=== PATIENT | female | born 1945 ===

== ENCOUNTER 2024-07-27 18:18 | Outpatient (NON) | payer MEDICARE, SELFPAY ==
--- OUTSIDE RECORDS SUMMARY | 2024-07-27 18:31 | XMS_ITS | Clinical Summary ---
Author Organization [facility] Address [address] [place] [id number] Care Team Providers Care Automotive Instructor Name Role Phone Unavailable Primary Care Provider Unavailabl e Social History Tobacco Use Types Packs/Day Years Used Date Smoking Tobacco: Never Assessed Comments Unknown Sex and Gender Information Value Date Recorded Sex Assigned at Not on file Legal Sex Female 7:15 PM CDT Gender Identity Not on file Sexual Orientation Not on file Plan of Treatment Health Maintenance Due Date Last Done Comments Hepatitis C 1963 DTaP, Tdap and Td Vaccines ( 1 - Tdap) 1965 Zoster Vaccines (1 of 2) 1996 Annual Medicare Wellness Visit 11/02/2011 Dexa Scan (General) 11/02/2011 Pneumococcal Vaccine: 65+ Ye ars (1 of 1 - PCV) 11/02/2011 RSV Immunization or 60+ Years (1 - 1-dose 75+ series) 2021 COVID-19 Vaccine ( - 2023-2 5 season) 2024 Influenza Adult (#1) 2024 Meningococcal B Vaccine Aged Out No l onger eligible based on patient's age to complete this topic Meningococcal Vaccine Aged Out No kayla stanley eligible based on patient's age to complete this topic RSV Immunizations Under 20 Months Aged Out No longer eligible based on patient's age to complete this topic Insurance MEDICARE
--- OUTSIDE RECORDS SUMMARY | 2024-07-27 18:31 | XMS_ITS | Clinical Summary ---
Author Organization Unknown Care Team Providers Care Telesales Manager Name Role Phone JENNIFER MANNING, IDALIA Unavailable Unavailable LEE REGISTERED NURSE CASTING CLEANER, NATHANAEL Santiago vailakellie Unavailable IDA WOOSD COUNSELOR, YANG Unavailable Unavailable Payers Payer Name Policy Type Policy Number Effective Date Expira tion Date MEDICARE [place] - EPISODIC [id number] Problems Condition Name Condition Details Condition Category Status Onset Date Resolution Date Last Treatment Date Treating Clinician Comments ENCEPHALOPAT HY, UNSPECIFIED Active 05-19 00:00: 00 OTHER PERSISTENT ATRIAL FIBRILLATION Active 05-19 00:00: 00 PARKINSON'S DIS W/O DYSKINESIA, W/O MENTION OF FLUCTUATIONS Active 05-19 00:00: 00 HYPERTENSIVE HEART DISEASE WITH HEART FAILURE Active 05-19 00:00: 00 ACUTE ON CHRONIC DIASTOLIC (CONGESTIVE) HEART FAILURE Active 05-19 00:00: 00 HYPERLIPIDEM IA, UNSPECIFIED Active 05-19 00:00: 00 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 Active 05-19 00:00: 00 ATHSCL HEART DISEASE OF [place] CORONARY ARTERY W/O ANG PCTRS Active 05-19 00:00: 00 OTHER SPECIFIED INTERSTITIAL PULMONARY DISEASES Active 05-19 00:00: 00 MODERATE PERSISTENT ASTHMA, UNCOMPLICATE D Active 05-19 00:00: 00 MAJOR DEPRESSIVE DISORDER, SINGLE EPISODE, UNSPECIFIED Active 05-19 00:00: 00 IRRITABLE BOWEL SYNDROME WITH CONSTIPATION Active - 00:00: 00 RESTLESS LEGS SYNDROME Active - 00:00: 00 GASTRO-ESOPH AGEAL REFLUX DISEASE WITHOUT ESOPHAGITIS Active 05-19 00:00: 00 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 Active 05-19 00:00: 00 AGE-RELATED OSTEOPOROSIS W/O CURRENT PATHOLOGICAL FRACTURE Active 05-19 00:00: 00 Oth intvrt disc degen, lum rgn w/o lum bck or lw extrm pain Active 05-19 00:00: 00 OVERACTIVE BLADDER Active 05-19 00:00: 00 RETENTION OF URINE, UNSPECIFIED Active 05-19 00:00: 00 DYSPHAGIA, UNSPECIFIED Active 05-19 00:00: 00 OLD MYOCARDIAL INFARCTION Active 05-19 00:00: 00 Obesity, class 2 Active 05-19 00:00: 00 BODY MASS INDEX [BMI] 36.0-36.9, ADULT Active 05-19 00:00: 00 DEPENDENCE ON WHEELCHAIR Active 05-19 00:00: 00 PERSONAL HISTORY OF URINARY (TRACT) INFECTIONS Active 2023-05 00:00: 00 PERSONAL HISTORY OF NICOTINE DEPENDENCE Active 05-19 00:00: 00 PRESENCE OF ARTIFICIAL KNEE JOINT, BILATERAL Active 05-19 00:00: 00 PRESENCE OF RIGHT ARTIFICIAL SHOULDER JOINT Active 05-19 00:00: 00 OTHER GROUP HOME (CURRENT) DRUG THERAPY Active 05-19 00:00: 00 HORMONE REPLACEMENT THERAPY Active 05-19 00:00: 00 GROUP HOME (CURRENT) USE OF ASPIRIN Active 05-19 00:00: 00 GROUP HOME (CURRENT) USE OF ANTICOAGULAN TS Active 05-19 00:00: 00 HISTORY OF FALLING Active 05-19 00:00: 00 PAROXYSMAL ATRIAL FIBRILLATION Active 05-19 00:00: 00 Allergies, Adverse Reactions, Alerts Allergy Name Allergy Type Status Severity Reaction(s) Onset Date Inactive Date Treating Clinician Comments MORPHINE Propensity to adverse reactions Active 2024-03 20:21:0 7 TRAMADOL Propensity to adverse reactions Active 2024-03 20:21:2 1 ADHESIVE Propensity to adverse reactions Active 2024-03 20:20:5 7 Medications Ordered Medication Name Filled Medication Name Start Date Stop Date Current Medication? Ordering Clinician Indication Dosage Frequency Signature (SIG) Comments Components acetaminoph en 325 mg capsule 2023-05 00:00: 00 Yes [id number] PAIN 2 capsule EVERY 6 HOURS 2 capsule EVERY 6 HOURS (route: oral) Med Classific ation: Analgesic , Anti-infl ammatory or Antipyret ic albuterol sulfate 0.63 mg/3 mL solution for nebulizatio n 2023-05 00:00: 00 Yes [id number] WHEEZING 3 mL EVERY 6 HOURS 3 mL EVERY 6 HOURS (route: inhalation ) Med Classific ation: Respirato ry Therapy Agents albuterol sulfate HFA 90 mcg/actuati on aerosol inhaler 2023-05 00:00: 00 Yes [id number] WHEEZING 2 puff EVERY 4 HOURS 2 puff EVERY 4 HOURS (route: inhalation ) Med Classific ation: Respirato ry Therapy Agents amlodipine 10 mg tablet 2023-05 00:00: 00 06-02 23:59 :00 No [id number] HTN 1 tablet DAILY 1 tablet DAILY (route: oral) Med Classific ation: Cardiovas cular Therapy Agents aspirin 81 mg tablet,singh yed release 2023-05 00:00: 00 Yes [id number] BLOOD CLOT PREVENTION 1 tablet DAILY 1 tablet DAILY (route: oral) Med Classific ation: Hematolog ical Agents Bactrim DS 800 mg-160 mg tablet 2023-05 00:00: 00 04-19 23:59 :00 No [id number] UTI 1 tablet 2 TIMES DAILY 1 tablet 2 TIMES DAILY (route: oral) Med Classific ation: Anti-Infe ctive Agents Colace 100 mg capsule 2023-05 00:00: 00 Yes [id number] CONSTIPATIO N 1 capsule 2 TIMES DAILY 1 capsule 2 TIMES DAILY (route: oral) Med Classific ation: Gastroint estinal Therapy Agents hydralazine 25 mg tablet 2023-05 00:00: 00 Yes [id number] HTN 1 tablet EVERY 8 HOURS 1 tablet EVERY 8 HOURS (route: oral) Med Classific ation: Cardiovas cular Therapy Agents hydrocodone 7.5 mg-acetamin ophen 300 mg tablet 2023-05 00:00: 00 Yes [id number] PAIN 1 tablet EVERY 8 HOURS 1 tablet EVERY 8 HOURS (route: oral) Med Classific ation: Analgesic , Anti-infl ammatory or Antipyret ic hydroxyzine HCl 10 mg tablet 2023-05 00:00: 00 04-19 23:59 :00 No [id number] ITCHING 1 tablet EVERY 12 HOURS 1 tablet EVERY 12 HOURS (route: oral) Med Classific ation: Central Nervous System Agents isosorbide mononitrate ER 30 mg tablet,exte nded release 24 hr 2023-05 00:00: 00 06-02 23:59 :00 No [id number] CHEST PAIN 1 tablet DAILY 1 tablet DAILY (route: oral) Med Classific ation: Cardiovas cular Therapy Agents meloxicam 15 mg tablet 2023-05 00:00: 00 04-19 23:59 :00 No [id number] PAIN 1 tablet DAILY 1 tablet DAILY (route: oral) Med Classific ation: Analgesic , Anti-infl ammatory or Antipyret ic methimazole 10 mg tablet 2023-05 00:00: 00 Yes [id number] HYPERTHYROI DISM 1.5 tablet DAILY 1.5 tablet DAILY (route: oral) Med Classific ation: Endocrine Mucinex Cold,Flu and Sore Throat 10 mg-20 mg-650 mg/20 mL oral liquid 2023-05 00:00: 00 Yes [id number] COUGH 10 mL EVERY 4 HOURS 10 mL EVERY 4 HOURS (route: oral) Med Classific ation: Respirato ry Therapy Agents omeprazole 20 mg capsule,del ayed release 2023-05 00:00: 00 Yes [id number] INDIGESTION 1 capsule DAILY 1 capsule DAILY (route: oral) Med Classific ation: Gastroint estinal Therapy Agents ondansetron 4 mg disintegrat ing tablet 2023-05 00:00: 00 Yes [id number] NAUSEA 1 tablet EVERY 8 HOURS 1 tablet EVERY 8 HOURS (route: oral) Med Classific ation: Gastroint estinal Therapy Agents ropinirole 1 mg tablet 2023-05 00:00: 00 Yes [id number] PARKINSONS 1.5 tablet EVERY 8 HOURS 1.5 tablet EVERY 8 HOURS (route: oral) Med Classific ation: Central Nervous System Agents rosuvastati n 20 mg tablet 2023-05 00:00: 00 Yes [id number] HIGH CHOLESTEROL 1 tablet DAILY 1 tablet DAILY (route: oral) Med Classific ation: Cardiovas cular Therapy Agents Sinemet 25 mg-100 mg tablet 2023-05 00:00: 00 Yes [id number] PARKINSONS 2 tablet 4 TIMES DAILY 2 tablet 4 TIMES DAILY (route: oral) Med Classific ation: Central Nervous System Agents Vasotec 20 mg tablet 2023-05 00:00: 00 Yes [id number] HTN 1 tablet DAILY 1 tablet DAILY (route: oral) Med Classific ation: Cardiovas cular Therapy Agents Wellbutrin XL 300 mg 24 hr tablet, extended release 2023-05 00:00: 00 04-19 23:59 :00 No [id number] DEPRESSION 1 tablet DAILY 1 tablet DAILY (route: oral) Med Classific ation: Central Nervous System Agents Zoloft 100 mg tablet 2023-05 00:00: 00 Yes [id number] DEPRESSION 1 tablet DAILY 1 tablet DAILY (route: oral) Med Classific ation: Central Nervous System Agents nitrofurant oin macrocrysta l 100 mg capsule 05-20 00:00: 00 05-28 23:59 :00 No [id number] DYSURIA 1 capsule TWICE DAILY 1 capsule TWICE DAILY (route: oral) Med Classific ation: Genitouri nary Therapy fluticasone 500 mcg-salmete rol 50 mcg/dose blistr powdr for inhalation 06-06 00:00: 00 Yes [id number] SOB 1 inhalat ion TWICE DAILY 1 inhalation TWICE DAILY (route: inhalation ) Med Classific ation: Respirato ry Therapy Agents furosemide 20 mg tablet 06-06 00:00: 00 Yes [id number] RETENTION 1 tablet ONCE DAILY 1 tablet ONCE DAILY (route: oral) Med Classific ation: Cardiovas cular Therapy Agents Gemtesa 75 mg tablet 06-06 00:00: 00 Yes [id number] OVER REACTIVE BLADDER 1 tablet ONCE DAILY 1 tablet ONCE DAILY (route: oral) Med Classific ation: Genitouri nary Therapy metoprolol succinate ER 25 mg tablet,exte nded release 24 hr 06-06 00:00: 00 Yes [id number] HYPERTENSIO N 1 tablet ONCE DAILY 1 tablet ONCE DAILY (route: oral) Med Classific ation: Cardiovas cular Therapy Agents nystatin 1 billion unit powder 06-06 00:00: 00 Yes [id number] RASH Per instruc tions TWICE DAILY Per instructio ns TWICE DAILY (route: miscellane ous) Med Classific ation: Anti-Infe ctive Agents Eliquis 5 mg tablet 06-04 00:00: 00 Yes [id number] A. FIB 1 tablet TWICE DAILY 1 tablet TWICE DAILY (route: oral) Med Classific ation: Hematolog ical Agents Immunizations Ordered Immunization Name Filled Immunization Name Date Status Comments Refusal Reason INFLUENZA, TIV (INACTIVATED) 2024-02-23 00:00:00 PNEUMOCOCCAL (PPV), PPV 2024-02-03 00:00:00 Vital Signs Vital Name Observation Time Observation Value Commen ts Temperature 2024-07-26 11:39:00.000 97.7 [degF] Temperature 2024-07-19 10:25:00.000 97.9 [degF] Temperature 2024-07-12 12:59:00.000 97.9 [degF] Temperature 2024-07-05 11:59:00.000 99.3 [degF] Temperature 2024-07-02 15:15:00.000 97.8 [degF] Temperature 2024-06-22 11:56:00.000 97.9 [degF] Temperature 2024-06-21 11:03:00.000 97.2 [degF] Temperature 2024-06-16 10:18:00.000 100.6 [degF] Temperature 2024-06-14 11:02:00.000 97.7 [degF] Temperature 2024-06-07 12:30:00.000 97.3 [degF] Temperature 2024-06-07 11:26:00.000 97.3 [degF] BMI (%) 2024-06-21 11:03:00.000 36 kg/m2 Height 2024-06-21 11:03:00.000 60 [in_us] Pulse 2024-07-26 11:39:00.000 61 /min Pulse 2024-07-19 10:25:00.000 61 /min Pulse 2024-07-12 12:59:00.000 60 /min Pulse 2024-07-05 11:59:00.000 60 /min Pulse 2024-07-02 15:15:00.000 63 /min Pulse 2024-06-22 11:57:00.000 57 /min Pulse 2024-06-21 11:03:00.000 60 /min Pulse 2024-06-16 10:18:00.000 76 /min Pulse 2024-06-14 11:02:00.000 65 /min Pulse 2024-06-07 12:10:00.000 71 /min Pulse 2024-06-07 11:26:00.000 71 /min O2 Saturation (%) 2024-07-26 11:39:00.000 97 % O2 Saturation (%) 2024-07-19 10:25:00.000 96 % O2 Saturation (%) 2024-07-12 12:59:00.000 99 % O2 Saturation (%) 2024-07-05 11:59:00.000 97 % O2 Saturation (%) 2024-07-02 15:15:00.000 96 % O2 Saturation (%) 2024-06-22 11:56:00.000 96 % O2 Saturation (%) 2024-06-21 11:03:00.000 97 % O2 Saturation (%) 2024-06-16 10:18:00.000 96 % O2 Saturation (%) 2024-06-14 11:02:00.000 95 % O2 Saturation (%) 2024-06-07 12:10:00.000 99 % O2 Saturation (%) 2024-06-07 11:26:00.000 99 % Respirations 2024-07-26 11:39:00.000 18 /min Respirations 2024-07-19 10:25:00.000 17 /min Respirations 2024-07-12 12:59:00.000 16 /min Respirations 2024-07-05 11:59:00.000 17 /min Respirations 2024-07-02 15:15:00.000 18 /min Respirations 2024-06-22 11:56:00.000 16 /min Respirations 2024-06-21 11:03:00.000 18 /min Respirations 2024-06-16 10:18:00.000 16 /min Respirations 2024-06-14 11:02:00.000 18 /min Respirations 2024-06-07 12:10:00.000 17 /min Respirations 2024-06-07 11:26:00.000 17 /min Weight (lbs) 2024-06-21 11:03:00.000 189 [lb_av] Systolic Blood Pressure 2024-07-26 11:39:00.000 122 mm [Hg] Systolic Blood Pressure 2024-07-19 10:25:00.000 118 mm [Hg] Systolic Blood Pressure 2024-07-12 12:59:00.000 107 mm [Hg] Systolic Blood Pressure 2024-07-05 11:59:00.000 126 mm [Hg] Systolic Blood Pressure 2024-07-02 15:15:00.000 132 mm [Hg] Systolic Blood Pressure 2024-06-22 11:56:00.000 136 mm [Hg] Systolic Blood Pressure 2024-06-21 11:03:00.000 118 mm [Hg] Systolic Blood Pressure 2024-06-16 10:18:00.000 223 mm [Hg] Systolic Blood Pressure 2024-06-14 11:02:00.000 125 mm [Hg] Systolic Blood Pressure 2024-06-07 12:10:00.000 122 mm [Hg] Systolic Blood Pressure 2024-06-07 11:26:00.000 122 mm [Hg] Diastolic Blood Pressure 2024-07-26 11:39:00.000 70 mm [Hg] Diastolic Blood Pressure 2024-07-19 10:25:00.000 60 mm [Hg] Diastolic Blood Pressure 2024-07-12 12:59:00.000 64 mm [Hg] Diastolic Blood Pressure 2024-07-05 11:59:00.000 62 mm [Hg] Diastolic Blood Pressure 2024-07-02 15:15:00.000 81 mm [Hg] Diastolic Blood Pressure 2024-06-22 11:56:00.000 80 mm [Hg] Diastolic Blood Pressure 2024-06-21 11:03:00.000 60 mm [Hg] Diastolic Blood Pressure 2024-06-16 10:18:00.000 119 m m[Hg] Diastolic Blood Pressure 2024-06-14 11:02:00.000 56 mm [Hg] Diastolic Blood Pressure 2024-06-07 12:10:00.000 58 mm [Hg] Diastolic Blood Pressure 2024-06-07 11:26:00.000 58 mm [Hg] Plan of Treatment Planned Activity Planned Date Details Comments Future Scheduled Test HOME HEALT H NURSE WILL INSTRUCT PATIENT/CAREGIVER ABOUT PARKINSONS DISEASE INCLUDING DEFINITION, RISK FACTORS, SIGNS/SYMPTOMS, POSSIBLE COMPLICATIONS, AND HOME MANAGEMENT. [code = HOME HEALTH NURSE WILL INSTRUCT PATIENT/CAREGIVER ABOUT PARKINSONS DISEASE INCLUDING DEFINITION, RISK FACTORS, SIGNS/SYMPTOMS, POSSIBLE COMPLICATIONS, AND HOME MANAGEMENT.] Future Scheduled Test HOME HEALT H NURSE WILL ASSESS FOR COMPLICATIONS RELATED TO ANTIPLATELET USE AND INSTRUCT PATIENT/CAREGIVER ABOUT PRECAUTIONS TO FOLLOW AND SIGNS/SYMPTOMS TO REPORT. [code = HOME HEALTH NURSE WILL ASSESS FOR COMPLICATIONS RELATED TO ANTIPLATELET USE AND INSTRUCT PATIENT/CAREGIVER ABOUT PRECAUTIONS TO FOLLOW AND SIGNS/SYMPTOMS TO REPORT.] Future Scheduled Test SKILLED NU RSE TO INSTRUCT PATIENT/CAREGIVER ON WHAT IS HYPERTENSION, HOW TO CHECK HIS/HER BLOOD PRESSURE, AND STRATEGIES TO USE TO CONTROL BLOOD PRESSURE SUCH MONITORING BP, SMOKING CESSATION, MONITORING WEIGHTS, ENGAGING IN PHYSICAL ACTIVITY AIMING FOR 150 MINUTES SPREAD THROUGHOUT THE WEEK. [code = SKILLED NURSE TO INSTRUCT PATIENT/CAREGIVER ON WHAT IS HYPERTENSION, HOW TO CHECK HIS/HER BLOOD PRESSURE, AND STRATEGIES TO USE TO CONTROL BLOOD PRESSURE SUCH MONITORING BP, SMOKING CESSATION, MONITORING WEIGHTS, ENGAGING IN PHYSICAL ACTIVITY AIMING FOR 150 MINUTES SPREAD THROUGHOUT THE WEEK.] Future Scheduled Test SKILLED NU RSE TO OBSERVE AND ASSESS PATIENT WITH GENERALIZED DEPRESSION AND TEACH DEPRESSIVE SYMPTOMS. [code = SKILLED NURSE TO OBSERVE AND ASSESS PATIENT WITH GENERALIZED DEPRESSION AND TEACH DEPRESSIVE SYMPTOMS.] Future Scheduled Test HOME HEALT H NURSE WILL TEACH THE PATIENT/CAREGIVER ABOUT WHAT IS AN ARRHYTHMIA, HOW TO CHECK OWN PULSE AND TRACK, SIGNS AND SYMPTOMS OF WHEN ARRYTHMIA OCCURS, AND WHAT WARNING SIGNS TO CALL THE AGENCY, PHYSICIAN OR 911. [code = HOME HEALTH NURSE WILL TEACH THE PATIENT/CAREGIVER ABOUT WHAT IS AN ARRHYTHMIA, HOW TO CHECK OWN PULSE AND TRACK, SIGNS AND SYMPTOMS OF WHEN ARRYTHMIA OCCURS, AND WHAT WARNING SIGNS TO CALL THE AGENCY, PHYSICIAN OR 911.] Future Scheduled Test [facility] PHYSICIAN, ASSOCIATED PHYSICIAN, NPP OR PA WITHIN THE SAME GROUP MAY APPROVE AND SIGN THE ORDER (ON ANY PAGE) ATTESTING THAT THE COMPREHENSIVE OUTCOME ASSESSMENTS, EVALUATIONS, AND HOME HEALTH CERTIFICATION PLANS SUPPORT HOMEBOUND STATUS. HOME HEALTH WEB-PORTAL DOCUMENTATION ACCESSED BY THE PHYSICIAN MUST BE INCORPORATED INTO THE MEDICAL RECORD TO CORROBORATE THE PHYSICIAN, NPP, OR PAS F2F ENCOUNTER TO SUPPORT ELIGIBILITY FOR HOME HEALTH SERVICES. [code = THE CERTIFYING PHYSICIAN, ASSOCIATED PHYSICIAN, NPP OR PA WITHIN THE SAME GROUP MAY APPROVE AND SIGN THE ORDER (ON ANY PAGE) ATTESTING THAT THE COMPREHENSIVE OUTCOME ASSESSMENTS, EVALUATIONS, AND HOME HEALTH CERTIFICATION PLANS SUPPORT HOMEBOUND STATUS. HOME HEALTH WEB-PORTAL DOCUMENTATION ACCESSED BY THE PHYSICIAN MUST BE INCORPORATED INTO THE MEDICAL RECORD TO CORROBORATE THE PHYSICIAN, NPP, OR PAS F2F ENCOUNTER TO SUPPORT ELIGIBILITY FOR HOME HEALTH SERVICES.] Future Scheduled Test EACH ORDER ED IN-HOME OR TELEHEALTH VISIT, THE SKILLED NURSE WILL CONDUCT A COMPREHENSIVE ASSESSMENT INCLUDING VITAL SIGNS, PAIN, SAFETY, MENTAL/COGNITIVE/PSYCHOSOCIAL STATUS, MED MANAGEMENT, NUTRITION, SKIN INTEGRITY, PRESSURE ULCER PREVENTION, AND PATIENT/CAREGIVER ABILITY TO SUPPORT ORDERED CARE. SKILLED NURSE WILL INSTRUCT ON DISEASE PROCESS, MED MGMT., FALL PREVENTION AND SAFETY, INFECTION CONTROL AND PREVENTION, WARNING SIGNS, ADDRESS RESULTS OUTSIDE OF ORDERED PARAMETERS LISTED ON CARE PLAN, AND COORDINATE DISCHARGE WITH THE TREATING PROVIDER. MAY ACCEPT ORDERS FROM THE FOLLOWING PROVIDER(S) WHO WILL BE CONSULTING ON THE CERTIFIED CARE PLAN: IDALIA RODRIGUEZ NP [code = EACH ORDERED IN-HOME OR TELEHEALTH VISIT, THE SKILLED NURSE WILL CONDUCT A COMPREHENSIVE ASSESSMENT INCLUDING VITAL SIGNS, PAIN, SAFETY, MENTAL/COGNITIVE/PSYCHOSOCIAL STATUS, MED MANAGEMENT, NUTRITION, SKIN INTEGRITY, PRESSURE ULCER PREVENTION, AND PATIENT/CAREGIVER ABILITY TO SUPPORT ORDERED CARE. SKILLED NURSE WILL INSTRUCT ON DISEASE PROCESS, MED MGMT., FALL PREVENTION AND SAFETY, INFECTION CONTROL AND PREVENTION, WARNING SIGNS, ADDRESS RESULTS OUTSIDE OF ORDERED PARAMETERS LISTED ON CARE PLAN, AND COORDINATE DISCHARGE WITH THE TREATING PROVIDER. MAY ACCEPT ORDERS FROM THE FOLLOWING PROVIDER(S) WHO WILL BE CONSULTING ON THE CERTIFIED CARE PLAN: IDALIA RODRIGUEZ NP] Future Scheduled Test OCCUPATION AL THERAPIST TO EVALUATE AND TREAT [code = OCCUPATIONAL THERAPIST TO EVALUATE AND TREAT] Goal Patient Goal - S OC- 04/07/24- HEAL WOUND AND GET STRONGER KVNG/RECERT- 06/02/24: TO STAY OUT OF HOSPITAL KVNG 06/21/24: TO REMAIN FREE FROM FALLS AND HOSPITALIZATIONS Goal 2024-06-02 Patient Goal - S OC- 04/07/24- HEAL WOUND AND GET STRONGER Goal 2024-06-21 Patient Goal - S OC- 04/07/24- HEAL WOUND AND GET STRONGER KVNG/RECERT- 06/02/24: TO STAY OUT OF HOSPITAL Goal Provider Goal - PATIENT/CAREGIVER WILL VERBALIZE UNDERSTANDING OF PARKINSON'S DISEASE INCLUDING DEFINITION, SIGNS/SYMPTOMS, POSSIBLE COMPLICATIONS, AND MANAGEMENT BY THE END OF HOME HEALTH SERVICES. Goal Provider Goal - PATIENT/CAREGIVER WILL VERBALIZE UNDERSTANDING OF ANTIPLATELET COMPLICATIONS TO REPORT AND PRECAUTIONS TO FOLLOW BY END OF HOME HEALTH SERVICES. Goal Provider Goal - PATIENT/CAREGIVER WILL INDEPENDENTLY DEMONSTRATE HOW TO CHECK HIS/HER OWN BP AND VERBALIZE WHAT STRATEGIES CAN ASSIST TO CONTROL BLOOD PRESSURE. Goal Provider Goal - PATIENT/CAREGIVER WILL VERBALIZE UNDERSTANDING OF THE CONTRIBUTING FACTORS AND SYMPTOMS OF DEPRESSION. Goal Provider Goal - BY THE END OF HOME HEALTH SERVICES, PATIENT/CAREGIVER WILL DEMONSTRATE HOW TO TAKE THEIR OWN PULSE AND VERBALIZE WHAT WARNING SIGNS TO CALL THE PHYSICIAN OR 911 BY THE END OF HOME HEALTH SERVICES. Goal Provider Goal - A PLAN OF CARE WILL BE ESTABLISHED THAT MEETS ALL PATIENT'S SNF NEEDS AND COUNTER SIGNED BY PHYSICIAN. Goal Provider Goal - PATIENT WILL BE FREE OF FALLS AND HOSPITALIZATIONS THROUGHOUT EPISODE OF CARE. PATIENT/CAREGIVER WILL UNDERSTAND AND ADHERE TO ORDERED DIET. PATIENT/CAREGIVER WILL INDEPENDENTLY MANAGE MEDICATIONS, UNDERSTAND ANY CHANGES, SIDE EFFECTS TO REPORT BY DISCHARGE. PATIENT WILL BE FREE OF INFECTION AND UNDERSTAND MEASURES OF PREVENTION. PATIENT/CAREGIVER WILL COLLABORATE WITH SKILLED NURSE TO DEVELOP POC AT SOC AND ON AN ONGOING BASIS UPDATES ARE NEEDED. UNDERSTAND PROGRESS MADE/DISCHARGE PLANNING. ADDITIONAL ORDERS WILL BE RECEIVED FROM ALTERNATE PHYSICIANS IN A TIMELY MANNER. Goal Provider Goal - Progress Notes Progress Notes <paragraph>[Visit Date: 2024 by NATHANAEL HOWARD REGISTERED NURSE CASTING CLEANER]:</paragraph><paragraph>PTNT BEING SEEN BY SN FOR ENCEPHALOPATHY. PTNT MENTAL STATUS IS BACK TO BASELINE. SN GREETED AT DOOR BY PTNT , OLESYA. ENTERED HOME TO FIND PTNT RESTING ON COUCH WITH LEGS ELEVATED. PTNT PRESENT DURING VISIT. NO FALLS OR MED CHANGES THIS WEEK. BIGGEST COMPLAINT IS STRONG SMELLING URINE AND FREQUENCY. SN NOTIFIED [place]ISS WITH IDALIA RODRIGUEZ NP. SN REQUESTS UA FOR THIS WEEK. NNO RECEIVED AT THIS TIME. PTNT ANOX4, ACTIVELY PARTICIPATING IN CARE WITH PLEASANT AFFECT. COMPREHENSIVE ASSESSMENT COMPLETED. VSS, HR REG, LUNGS CTA, BSX4, ABD SOFT NONTENDER, BM'S NORMAL, LBM 07/26/24, NO EDEMA BLE, +2 PEDAL PULSES. PAIN 5/10 LEFT SHOULDER. WITH MOVEMENT SHOULDER PAIN IS 8-10/10. PTNT DENIES, CHEST PAIN, FEVER, CHILLS, AND SOB. SKIN CHECK COMPLETED. PTNT DEMONSTRATES NO BREAKDOWN IN SKIN INTEGRITY. SN INSTRUCTED PTNT ON PAIN MGMT: RELAXATION, PAIN MED SCHEDULE, HEAT/COLD THERAPY, GUIDED IMAGERY, POSITIONING, EXERCISE TO PREVENT STIFFNESS, ETC. PTNT APT 07/26 DR. DAVALOS, 08/04 IDALIA RODRIGUEZ NP (PCP), 08/04 PAIN MGMT, 09/07 DR. CHACON (ORTHO), 11/25 THYROID US, 12/08 UDAY KATHLEEN (NEURO). PTNT STABLE AT DEPARTURE FROM HOME. PTNT/CG VERBALIZED UNDERSTANDING OF ALL EDUCATION PROVIDED. PTNT/CG DENY ADDITIONAL QUESTIONS/CONCERNS AND VERBALIZE SATISFACTION WITH CARE AT END OF VISIT.</paragraph> Encounters Start Date/Time End Date/Time Encounter Type Admission Type Attending Clinicians Care Facility Care Department Encounter ID Discharge Date Discharge Status Discharge Condition Discharge Reason Percent Goals Met 2024-04-07 00:00:00 2024-08-04 00:00:00 Outpatient RECERTIFIC NATHANAEL CLAY [facility] [id number]
--- OUTSIDE RECORDS SUMMARY | 2024-07-27 18:31 | XMS_ITS | Clinical Summary ---
Author Organization [facility] Address [address] Attn: Epic Prelude ADT DARYL DEWITT [id number] Care Team Providers Care Rivet Heater Name Role Phone Unavailable Primary Care Provider Unavailabl e Medications rOPINIRole (REQUIP) 0.25 mg tablet Take 1 Tablet (0.25 mg) by mouth 3 times daily. 90 Tablet 5 2 3:38 PM CDT 09/01/19 22 Active metoprolol tartrate (LOPRESSOR) 25 mg tablet Take 1 Tablet (25 mg) by mouth 2 times daily. 180 Tablet 3 3 2:[address] RECORDER 08/04/19 22 Active carbidopa-levo dopa (SINEMET) 25-100 mg tablet TAKE ONE AND ONE-HALF TABLETS BY MOUTH FOUR TIMES A DAY 180 Tablet 5 2 1:17 PM CDT 08/03/19 22 Active methIMAzole (TAPAZOLE) 5 mg tablet Take 3 Tablets (15 mg) by mouth daily. 270 Tablet 3 2 5:38 PM CDT 07/18/19 22 Active apixaban (Eliquis) 5 mg tablet TAKE ONE TABLET BY MOUTH TWICE A DAY 60 Tablet 10/21/19 22 Active enalapril (VASOTEC) 10 mg tablet TAKE ONE TABLET BY MOUTH TWICE A DAY 60 Tablet 10/21/19 22 Active hydrALAZINE (APRESOLINE) 50 mg tablet TAKE TWO TABLETS BY MOUTH THREE TIMES DAILY 180 Tablet 10/21/19 22 Active metoprolol tartrate (Lopressor) 50 mg tablet TAKE ONE-HALF TABLET BY MOUTH TWICE DAILY 30 Tablet 10/21/19 22 Active HYDROcodone-ac etaminophen ([place]) 7.5-325 mg Tablet TAKE TWO TABLETS BY MOUTH EVERY 4 HOURS NEEDED FOR PAIN (Scale 7-10) 84 Tablet 10/21/19 22 Active pantoprazole (PROTONIX) 40 mg Tablet, Delayed Release (E.C.) TAKE ONE TABLET BY MOUTH TWICE A DAY 60 Tablet 3 5:[address] RECORDER 10/21/19 22 Active rOPINIRole (REQUIP) 0.25 mg tablet Take 1 Tablet (0.25 mg) by mouth 3 times daily. 90 Tablet 10/21/19 22 Active montelukast (Singulair) 10 mg tablet TAKE ONE TABLET BY MOUTH AT BEDTIME 30 Tablet 3 11:[address] RECORDER 10/21/19 22 Active albuterol sulfate 90 mcg/Actuation inhaler INHALE TWO PUFFS BY MOUTH EVERY 4 HOURS NEEDED FOR WHEEZING 18 Gram 10/21/19 22 Active sennosides-doc usate sodium (Senna-S) 8.6-50 mg tablet TAKE ONE TABLET BY MOUTH DAILY 30 Tablet 10/21/19 22 Active nystatin (NYSTOP) 100,000 unit/gram powder APPLY TOPICALLY DIRECTED TWICE DAILY 15 Gram 10/21/19 22 Active polyethylene glycol 3350 (Miralax) 17 gram/dose Powder Take 1 Scoop (17 Grams) by mouth 1 time daily as needed for constipation 119 Gram 10/21/19 22 Active ciprofloxacin HCl (Cipro) 500 mg tablet TAKE ONE TABLET BY MOUTH EVERY 12 HOURS FOR 6 DAYS 12 Tablet 2 3:24 PM CDT 10/21/19 22 Active albuterol sulfate 90 mcg/Actuation inhaler Inhale 2 puffs by mouth every 4 (four) hours as needed for wheezing 18 Gram 1 2 12:56 PM CDT 10/25/19 22 Active azithromycin (ZITHROMAX) 250 mg tablet Take 2 tabs (500 mg) by mouth today, than 1 daily for 4 days. 6 Tablet 2 7:15 PM CDT 11/14/19 22 Active benzonatate (TESSALON) 100 mg capsule Take 1 capsule (100 mg total) by mouth 3 (three) times a day as needed for cough 42 Capsule 2 7:15 PM CDT 11/14/19 22 Active montelukast (SINGULAIR) 10 mg tablet Take 1 tablet (10 mg total) by mouth nightly 30 Tablet 5 2 2:[address] RECORDER 11/14/19 22 Active enalapril (VASOTEC) 10 mg tablet Take 1 Tablet (10 mg) by mouth 2 times daily. 60 Tablet 3 2 10:[address] RECORDER 12/19/19 22 Active sertraline (ZOLOFT) 50 mg tablet TAKE TWO TABLETS BY MOUTH NIGHTLY 180 Tablet 1 3 10:[address] RECORDER 12/27/19 22 Active rosuvastatin (CRESTOR) 20 mg tablet TAKE ONE TABLET BY MOUTH NIGHTLY 30 Tablet 5 2 2:[address] RECORDER 01/17/20 22 Active hydrOXYzine HCL (ATARAX) 25 mg tablet Take 1 Tablet (25 mg) by mouth every 8 hours as needed for itching 30 Tablet 2 1:33 PM CDT 01/30/20 22 Active hydrOXYzine HCL (ATARAX) 25 mg tablet Take 1 tablet (25 mg) by mouth every 8 (eight) hours as needed for itching 30 Tablet 1 2 4:[address] RECORDER 02/01/20 22 Active methylPREDNISo lone (MEDROL DOSPACK) 4 mg Tablets, Dose Pack Take as directed on package. 21 Tablet 2 11:25 AM CDT 03/14/20 22 Active enalapril (VASOTEC) 10 mg tablet Take 1 Tablet (10 mg) by mouth 2 times daily. 60 Tablet 3 3 1:39 PM CDT 04/29/20 22 Active hydrOXYzine HCL (ATARAX) 25 mg tablet Take 1 tablet (25 mg) by mouth every 8 (eight) hours as needed for itching 30 Tablet 4 3 11:[address] RECORDER 05/16/20 22 Active montelukast (SINGULAIR) 10 mg tablet Take 1 tablet (10 mg total) by mouth nightly 30 Tablet 4 3 11:45 AM CDT 05/16/20 22 Active albuterol sulfate HFA 90 mcg/actuation aerosol inhaler Inhale 2 puffs by mouth every 4 (four) hours as needed for wheezing 18 Gram 1 3 10:59 AM CDT 05/30/19 23 Active HYDROcodone-ac etaminophen (NORCO) 7.5-325 mg Tablet Take 1 tablet by mouth every 8 (eight) hours as needed for pain 60 Tablet 3 2:34 PM [facility] 05/30/19 23 Active amoxicillin-cl avulanate (AUGMENTIN) 500-125 mg tablet Take 1 tablet by mouth every 8 (eight) hours for 7 days 21 Tablet 3 1:11 PM [facility] 06/01/19 23 Active albuterol sulfate HFA 90 mcg/actuation aerosol inhaler Inhale 2 puffs by mouth every 4 (four) hours as needed for wheezing 8.5 Gram 3 2:03 PM [facility] 06/01/19 23 Active hydrOXYzine HCL (ATARAX) 25 mg tablet Take 1 tablet (25 mg total) by mouth every 8 (eight) hours as needed for itching 30 Tablet 4 3 10:26 AM [facility] 07/08/19 23 Active Nebulizers Use as directed 50 Each 2 07/31/19 23 Active methIMAzole (TAPAZOLE) 10 mg tablet Take 2 tablets (20 mg total) by mouth daily 60 Tablet 11 4 12:15 PM [facility] 08/12/19 23 Active pantoprazole (PROTONIX) 40 mg Tablet, Delayed Release (E.C.) Take 1 tablet (40 mg total) by mouth daily 30 Tablet 11 3 2:07 PM [facility] 08/12/19 23 Active aspirin (ECOTRIN EC) 81 mg Tablet, Delayed Release (E.C.) Take 1 tablet (81 mg total) by mouth daily 30 Tablet 3 11:17 AM [facility] 08/12/19 23 Active furosemide (LASIX) 20 mg tablet Take 1 tablet (20 mg total) by mouth daily 30 Tablet 11 3 3:25 PM [facility] 08/12/19 23 Active guaiFENesin (MUCINEX) 600 mg Extended Release Biphasic tablet Take 1 tablet (600 mg total) by mouth 2 (two) times a day as needed for cough 14 Tablet 08/12/19 23 Active furosemide (LASIX) 20 mg tablet Take 2 Tablets (40 mg) by mouth daily. 60 Tablet 3 2:16 PM T 08/22/19 23 Active chlorphenirami ne-HYDROcodone (TUSSIONEX) 8-10 mg/5 mL Suspension, Sust. Release 12HR Take 5 mL by mouth every 12 (twelve) hours as needed for cough 100 mL 3 2:24 PM CDT 08/23/19 23 Active methIMAzole (TAPAZOLE) 10 mg tablet Take 0.5 Tablets (5 mg) by mouth daily. 15 Tablet 3 11:19 AM CDT 09/03/19 23 Active predniSONE (DELTASONE) 20 mg tablet Take 1 Tablet (20 mg) by mouth daily. 4 Tablet 3 1:13 PM CDT 09/16/19 23 Active amoxicillin (AMOXIL) 500 mg capsule Take 4 capsules (2000 mg) by mouth one hour prior to any dental procedure, even cleanings 4 Capsule 3 1:13 PM CDT 09/17/19 23 Active Sodium Chloride 1,000 mg Tablet, Soluble Take 1 Tablet (1,000 mg) by mouth every 12 hours. 60 Tablet 3 1:13 PM CDT 09/17/19 23 Active nystatin (MYCOSTATIN) 100,000 unit/mL suspension TAKE 5 ML BY MOUTH AFTER MEALS AND AT BEDTIME (RETAIN IN MOUTH LONG POSSIBLE BEFORE SWALLOWING) 140 mL 3 1:13 PM CDT 09/18/19 23 Active hydrALAZINE (APRESOLINE) 100 mg Tablet tablet Take 1 Tablet (100 mg) by mouth 3 times daily. 90 Tablet 2 3 11:23 AM CDT 09/24/19 23 Active benzonatate (TESSALON) 100 mg capsule Take 1 capsule (100 mg) by mouth 3 (three) times a day as needed for cough 20 Capsule 3 4:39 PM CDT 10/02/19 23 Active furosemide (LASIX) 20 mg tablet Take 3 Tablets (60 mg) by mouth daily. 90 Tablet 3 3 2:29 PM CDT 10/03/19 23 Active HYDROcodone-ac etaminophen (NORCO) 7.5-325 mg Tablet Take 1 tablet by mouth every 8 (eight) hours as needed for pain 60 Tablet 3 4:39 PM CDT 10/16/19 23 Active hydrOXYzine HCL (ATARAX) 25 mg tablet Take 1 tablet (25 mg total) by mouth 2 (two) times a day as needed for itching 60 Tablet 3 3:29 PM CDT 10/23/19 23 Active metoprolol tartrate (LOPRESSOR) 25 mg tablet Take 1 tablet (25 mg total) by mouth 2 (two) times a day 60 Tablet 3 3:29 PM CDT 10/29/19 23 Active buPROPion HCL (WELLBUTRIN XL) 150 mg Extended Release 24 hour tablet Take 1 tablet (150 mg total) by mouth every morning 30 Tablet 1 3 2:29 PM CDT 11/07/19 23 Active benzonatate (TESSALON) 200 mg capsule Take 1 capsule (200 mg total) by mouth 3 (three) times a day as needed for cough for up to 7 days 20 Capsule 3 10:43 AM CDT 11/15/19 23 Active sertraline (ZOLOFT) 100 mg tablet Take 1 tablet (100 mg total) by mouth daily 90 Tablet 4 3 2:36 PM CDT 11/15/19 23 Active benzonatate (TESSALON) 200 mg capsule Take 1 capsule (200 mg total) by mouth 3 (three) times a day as needed for cough for up to 7 days 20 Capsule 3 11:23 AM CDT 11/28/19 23 Active enalapril (VASOTEC) 10 mg tablet Take 1 Tablet (10 mg) by mouth daily. 90 Tablet 1 3 3:[address] RECORDER 12/03/19 23 Active benzonatate (TESSALON) 200 mg capsule Take 1 capsule (200 mg total) by mouth 3 (three) times a day as needed for cough for up to 7 days 20 Capsule 3 10:59 AM CDT 12/13/19 23 Active diclofenac sodium (VOLTAREN) 1 % gel Apply 2 g topically 3 (three) times a day 200 Gram 12/13/19 23 Active carbidopa-levo dopa (SINEMET CR) 50-200 mg Controlled Release tablet Take one tablet by mouth four times daily 120 Tablet 1 3 12:26 PM CDT 01/03/20 23 Active HYDROcodone-ac etaminophen (NORCO) 7.5-325 mg Tablet Take 1 Tablet by mouth every 8 hours as needed for pain (Scale 7-10) 12 Tablet 3 11:41 AM CDT 01/04/20 23 Active fluticasone propionate (FLONASE) 50 mcg/spray [place], Suspension nasal inhaler Administer 1 [place] in each nostril daily. 16 Gram 3 11:41 AM CDT 01/04/20 23 Active Sodium Chloride 1,000 mg Tablet, Soluble Take 1 Tablet (1,000 mg) by mouth 2 times daily. 60 Tablet 3 2:07 PM T 01/04/20 23 Active docusate sodium (COLACE) 100 mg capsule Take 1 capsule (100 mg total) by mouth 2 (two) times a day 60 Capsule 2 01/30/20 23 Active furosemide (LASIX) 20 mg tablet Take 1 Tablet (20 mg) by mouth daily. 30 Tablet 3 12:09 PM T 01/30/20 23 Active furosemide (LASIX) 20 mg tablet Take 1 tablet (20 mg total) by mouth daily 90 Tablet 1 3 3:04 PM T 02/04/20 23 Active carbidopa-levo dopa (SINEMET) 25-100 mg tablet Take 2 tablets by mouth 4 (four) times a day 240 Tablet 11 4 3:08 PM T 02/11/20 23 Active HYDROcodone-ac etaminophen (NORCO) 7.5-325 mg Tablet Take 1 tablet by mouth 3 times a day 90 Tablet 02/25/20 23 Active HYDROcodone-ac etaminophen (NORCO) 7.5-325 mg Tablet Take 1 Tablet by mouth 3 times daily. 90 Tablet 3 3:[address] RECORDER 03/31/20 23 Active methIMAzole (TAPAZOLE) 10 mg tablet Take 1 tablet (10 mg total) by mouth daily 90 Tablet 1 4 12:37 PM CDT 04/25/20 23 Active benzonatate (TESSALON) 200 mg capsule Take 1 capsule (200 mg total) by mouth 3 (three) times a day as needed for cough for up to 7 days 20 Capsule 4 3:[address] RECORDER 05/30/19 24 Active fluticasone propionate (FLONASE) 50 mcg/spray [place], Suspension nasal inhaler Administer 2 sprays into each nostril daily 16 Gram 1 4 3:46 PM CDT 05/30/19 24 Active nirmatrelvir-r itonavir (Paxlovid) 300(150mg x 2)-100 mg oral pack Take 300 mg nirmatrelvir (2 x 150 mg tablets) with 100 mg ritonavir (1 x 100 mg tablet) with all three tablets taken together by mouth twice daily for 5 days. 30 Each 05/30/19 24 Active budesonide-for moteroL (Symbicort) 160-4.5 mcg/actuation HFA Aerosol Inhaler Inhale two puffs by mouth two times a day. Rinse mouth and throat after use. 10.2 Gram 6 06/11/19 24 Active cefdinir (OMNICEF) 300 mg capsule Take 1 (one) capsule by mouth twice a day for 7 days 14 Capsule 4 12:[address] RECORDER 06/11/19 24 Active ciprofloxacin HCl (CIPRO) 250 mg tablet Take 1 (one) tablet by mouth twice a day 6 Tablet 4 10:[address] RECORDER 06/15/19 24 Active fluticasone propion-salmet Amelia (ADVAIR DISKUS,WIXELA INHUB) 500-50 mcg/dose disk inhaler Inhale 1 puff by mouth 2 (two) times a day. Rinse mouth with water after use. Do not swallow. 60 Each 1 4 8:40 AM CDT 06/16/19 24 Active predniSONE (DELTASONE) 20 mg tablet Take 2 tablets (40 mg) by mouth daily for 5 days 10 Tablet 4 1:19 PM CDT 08/20/19 24 Active potassium chloride (KLOR-CON) 10 mEq Extended Release tablet Take 1 Tablet (10 mEq) by mouth daily. 90 Tablet 1 4 3:09 PM CDT 09/10/19 24 Active isosorbide mononitrate (IMDUR) 30 mg Extended Release 24 hour tablet Take 1 tablet (30 mg total) by mouth daily 90 Tablet 1 4 6:33 PM CDT 09/26/19 24 Active sulfamethoxazo le-trimethopri m (BACTRIM DS) 800-160 mg tablet Take 1 tablet by mouth 2 (two) times a day for 5 days 10 Tablet 4 10:13 AM CDT 10/20/19 24 Active vibegron (Gemtesa) 75 mg Tablet Take 1 Tablet by mouth daily. 90 Tablet 1 4 6:06 PM CDT 11/10/19 24 Active enalapril (VASOTEC) 20 mg tablet Take 1 tablet (20 mg total) by mouth daily 90 Tablet 1 4 12:[address] RECORDER 11/26/19 24 Active meloxicam (MOBIC) 15 mg tablet Take 1 tablet (15 mg total) by mouth daily 30 Tablet 1 4 1:33 PM CDT 11/27/19 24 Active nystatin (NYSTOP) 100,000 unit/gram powder Apply topically 2 (two) times a day 15 Gram 2 4 1:33 PM CDT 12/12/19 24 Active rOPINIRole (REQUIP) 1 mg tablet Take 1.5 tablets (1.5 mg total) by mouth 3 (three) times a day 135 Tablet 5 5 12:[address] RECORDER 01/06/20 24 Active amLODIPine (NORVASC) 10 mg tablet Take 1 tablet (10 mg total) by mouth daily 90 Tablet 1 5 12:[address] RECORDER 01/16/20 24 Active omeprazole (PriLOSEC) 40 mg Capsule, Delayed Release(E.C.) Take 1 Capsule (40 mg) by mouth daily as directed 30 Capsule 6 01/28/20 24 Active sucralfate (CARAFATE) 1 gram tablet Take 1 Tablet (1 Gram) by mouth 3 times daily. 90 Tablet 4 12:18 PM CDT 02/06/20 24 Active rosuvastatin (CRESTOR) 20 mg tablet Take 1 tablet (20 mg total) by mouth nightly 90 Tablet 1 5 12:[address] RECORDER 02/09/20 24 Active ciprofloxacin HCl (CIPRO) 500 mg tablet Take 1 tablet (500 mg total) by mouth 2 (two) times a day for 7 days 14 Tablet 4 3:20 PM CDT 02/11/20 24 Active ondansetron (ZOFRAN ODT) 4 mg Tablet, Rapid Dissolve Dissolve 1 tablet (4 mg total) on the tongue every 8 (eight) hours as needed for nausea or vomiting 30 Tablet 3 03/01/20 24 Active hydrALAZINE (APRESOLINE) 25 mg tablet Take 1 tablet (25 mg total) by mouth 3 (three) times a day 180 Tablet 1 4 12:[address] RECORDER 04/09/20 24 Active HYDROcodone-ac etaminophen (NORCO) 7.5-325 mg Tablet Take 1 Tablet by mouth 3 times daily. 90 Tablet 4 1:[address] RECORDER 04/14/20 24 Active HYDROcodone-ac etaminophen (NORCO) 7.5-325 mg Tablet Take 1 Tablet by mouth 3 times daily. 90 Tablet 5 3:[address] RECORDER 04/14/20 24 Active omeprazole (PriLOSEC) 40 mg Capsule, Delayed Release(E.C.) Take one capsule (40mg) by mouth daily 90 Capsule 3 4 10:[address] RECORDER 05/06/20 24 Active vibegron (Gemtesa) 75 mg Tablet Take 1 Tablet by mouth daily. 90 Tablet 4 4 10:[address] RECORDER 05/06/20 24 Active albuterol sulfate HFA 90 mcg/actuation aerosol inhaler Inhale 2 puffs by mouth every 4 (four) hours as needed for wheezing 8.5 Gram 4 12:[address] RECORDER 05/11/20 24 Active nitrofurantoin (MACROBID) 100 mg capsule Take 1 capsule (100 mg total) by mouth 2 (two) times a day for 7 days 14 Capsule 4 11:[address] RECORDER 05/17/20 24 Active metoprolol succinate (TOPROL XL) 25 mg Extended Release 24 hour tablet Take 1 tablet (25 mg total) by mouth daily 30 Tablet 5 2:[address] RECORDER 05/29/19 25 Active carbidopa-levo dopa (SINEMET) 25-100 mg tablet Take 2 tablets by mouth 4 (four) times a day at 0900 (9AM), 1300 (1 PM), 1800 (6 PM), and 2100 (9 PM) 240 Tablet 1 5 11:[address] RECORDER 05/31/19 25 Active apixaban (Eliquis) 5 mg tablet Take 1 tablet (5 mg total) by mouth 2 (two) times a day 60 Tablet 3 5 12:[address] RECORDER 06/04/19 25 Active dexAMETHasone sodium phosphate (DEXASOL) 0.1 % solution Instill 1 drop into both eyes 4 times daily 5 mL 5 6:[address] RECORDER 06/11/19 25 Active amLODIPine (NORVASC) 10 mg tablet Take 1 tablet (10 mg total) by mouth daily 30 Tablet 11 5 9:[address] RECORDER 06/19/19 25 Active hydrALAZINE (APRESOLINE) 50 mg tablet Take 1 tablet (50 mg total) by mouth 3 (three) times a day 90 Tablet 11 5 12:[address] RECORDER 06/19/19 25 Active metoprolol succinate (TOPROL XL) 50 mg Extended Release 24 hour tablet Take 1 tablet (50 mg total) by mouth daily 30 Tablet 11 5 12:[address] RECORDER 06/19/19 25 Active spironolactone (ALDACTONE) 25 mg tablet Take 1 tablet (25 mg total) by mouth daily 30 Tablet 11 5 12:[address] RECORDER 06/19/19 25 Active sertraline (ZOLOFT) 100 mg tablet Take 1.5 tablets (150 mg total) by mouth daily 120 Tablet 1 5 6:[address] RECORDER 06/21/19 25 Active furosemide (LASIX) 20 mg tablet Take 1 tablet (20 mg total) by mouth daily 90 Tablet 5 6:[address] RECORDER 06/22/19 25 Active Restasis 0.05 % emulsion instill 1 drop into affected eye(s) every 12 hours 60 Each 5 10:[address] RECORDER 06/25/19 25 Active HYDROcodone-ac etaminophen (NORCO) 7.5-325 mg Tablet Take 1 Tablet by mouth 3 times daily. 90 Tablet 5 2:[address] RECORDER 07/10/19 25 Active methIMAzole (TAPAZOLE) 10 mg tablet Take 1.5 tablets (15 mg total) by mouth daily 135 Tablet 1 07/27/19 25 Active sulfamethoxazo le-trimethopri m (BACTRIM DS) 800-160 mg tablet Take 1 tablet (160 mg of trimethoprim total) by mouth 2 (two) times a day for 7 days 14 Tablet 5 6:[address] RECORDER 06/16/19 25 025 methIMAzole (TAPAZOLE) 10 mg tablet Take 1.5 tablets (15 mg total) by mouth daily 135 Tablet 1 06/22/19 25 025 Discontinued Social History Tobacco Use Types Packs/Day Years Used Date Smoking Tobacco: Never Assessed Comments Unknown Sex and Gender Information Value Date Recorded Sex Assigned at Not on file Legal Sex Female 3:24 PM CDT Gender Identity Not on file Sexual Orientation Not on file Plan of Treatment Health Maintenance Due Date Last Done Comments DTAP/TDAP/TD VACCINES (1 - Tdap) 1965 PNEUMOCOCCAL VACCINE 50+ YEA RS (1 of 1 - PCV) 1996 ZOSTER VACCINE (1 of 2) 1996 OSTEOPOROSIS SCREENING 11/02/2011 RSV VACCINE (60+ or ) (1 - 1-dose 75+ series) 2021 INFLUENZA VACCINE (#1) 2023 04/18/2022, 2020 Insurance RX CHANG PLANS (INTERNAL) [facility] Medicare Part D RX GENERIC COMMERCIAL Commercial
--- OUTSIDE RECORDS SUMMARY | 2024-07-27 18:31 | XMS_ITS | Clinical Summary ---
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 Gender Identity Not on file Sexual Orientation Not on file Plan of Treatment Health Maintenance Due Date Last Done Comments DEXA Bone Density 1945 Hepatitis C Virus (HCV) Screening 1945 TdaP Immunization 1945 Pneumococcal Immunization (50+ years) (1 of 1 - PCV) 1996 Zoster Immunization (1 of 2) 1996 Respiratory Syncytial Virus (RSV) Immunization (Adult) (1 - 1-dose 75+ series) 2021 Influenza Immunization (#1) 01/18/202402/17, 03/09/2019, 03/19/2016, Additional history exists SARS-COV-2 Immunization ( - 2023- season) 2024 Hepatitis B Immunization Aged Out No longer eligible based on patient's age to complete this topic Meningococcal Immunization (ACWY) Aged Out No longer eligible based on patient's age to complete this topic Rotavirus Immunization Aged Out No lo nger eligible based on patient's age to complete this topic
[2024-07-27 18:47] LABS: Add Urine Microscopic? YES; Appearance Urine Cloudy (Clear); Bilirubin Urine Negative (Negative); Blood Urine Negative (Negative); Color Urine Light Yellow (Yellow); Glucose Urine UA Negative (Negative); Ketones Urine Negative (Negative); Leukocyte Esterase Ur 1+ (Negative); Nitrate Urine Negative (Negative); Protein Urine Negative (Negative); Urobilinogen Urine 0.2 mg/dL (0.2-1.0)
[2024-07-27 18:49] LABS: RBC Urine 0-2 /hpf (0-2)
[2024-07-27 18:50] LABS: Bacteria Urine 2+ /hpf; Squamous Epithelial Cell Urine Few /hpf (Few); WBC Urine 16-20 /hpf (0-3)
== END 2024-07-27 18:19 | disposition home or self-care (01) ==
LOC: CHSLAB 18:22
PROVIDERS: Visit Provider Nurse Practitioner
DX: N32.81 Overactive bladder (principal); R33.9 Retention of urine, unspecified; Z87.440 Personal history of urinary (tract) infections
CPT/HCPCS: 81001; 87086